=== PATIENT | female | born 1990 | race African-American/Black ===

== ENCOUNTER 2016-07-24 11:44 | Emergency (ER) | payer OTHER ==
--- NOTE | 2016-07-24 12:20 | PDOC ---
History of Present Illness <Henrik Gracia - Last Filed: 07/24/16 14:16> - General History Source: Patient Exam Limitations: No Limitations - History of Present Illness Initial Comments: 26 y/o F w/PMH of htn, hydrocephalus presents to ER w/ c/o headache. Headaches have been present for the last 1-2 years but have worsened over the last 2 months. Last few days she has had worsening of symptoms and came to ER today because she saw spots in the morning but no longer is seeing the spots. She has a 5/10 TSE right now but at its peak it is 10/10. TSE usually worsens and comes every night and lasts for 15 min to 1 hour. Pt has 1 exacerbated TSE per day. TSE is located behind her eyes and moves to behind her ears. It is preceded by nausea and white, frothy vomiting every time. TSE are worsened with light and noise. TSE relieved by warm showers. She saw Dr. Ceballos 5 days ago who has made no changes to her medications (on sumatriptan and acetazolamide) but wants her to get a head scan (pt is unsure if it is MRI or CT) in the next 5 weeks before following up with him. She denies fevers, chills, SOB, dysuria, change in stool , constipation, diarrhea, swelling, recent trauma to head. <Arsenio Pearson - Last Filed: 07/24/16 18:37> - General Chief Complaint: Headache Stated Complaint: HEADACHES Time Seen by Provider: 07/24/16 12:12 Past History <Henrik Gracia - Last Filed: 07/24/16 14:16> - Past Medical History HTN: Yes Other medical history: HEADACHES - Immunization History Td Vaccination: Yes TDAP Vaccination: Yes Immunization Up to Date: Yes - Psycho/Social/Smoking Cessation Hx Anxiety: No Suicidal Ideation: No Smoking Status: Yes Smoking History: Current every day smoker Have you smoked in the past 12 months: Yes Number of Cigarettes Smoked Daily: 8 Information on smoking cessation initiated: Yes 'Breaking Loose' booklet given: 07/24/16 Hx Alcohol Use: No Drug/Substance Use Hx: No Substance Use Type: None <Arsenio Pearson - Last Filed: 07/24/16 18:37> - Past Medical History Allergies/Adverse Reactions: Allergies Allergy/AdvReac Type Severity Reaction Status Date / Time morphine Allergy Mild Itching Verified 07/24/16 11:55 Home Medications: Ambulatory Orders Hydrochlorothiazide 25 mg PO DAILY 12/17/15 Acetazolamide [Diamox -] 250 mg PO BID 07/24/16 Amlodipine Besylate [Norvasc -] 5 mg PO DAILY 07/24/16 Sumatriptan Succinate [Imitrex] 50 mg PO BID 07/24/16 Review of Systems - Review of Systems Able to Perform ROS?: Yes Comments:: CONSTITUTIONAL: Absent: fever, chills, diaphoresis, generalized weakness, malaise, loss of appetite HEENT: +visual changes Absent: rhinorrhea, nasal congestion, ear pain, eye pain CARDIOVASCULAR: Absent: chest pain, syncope, palpitations, irregular heart rate , lightheadedness, peripheral edema RESPIRATORY: Absent: cough, shortness of breath, dyspnea with exertion, orthopnea, wheezing, GASTROINTESTINAL: +nausea, vomiting Absent: abdominal pain, abdominal distension, diarrhea, constipation, melena, hematochezia GENITOURINARY: Absent: dysuria, frequency, urgency, hesitancy, hematuria, flank pain, genital pain MUSCULOSKELETAL: Absent: myalgia, arthralgia, joint swelling ENDOCRINE:Absent: unexplained weight gain, unexplained weight loss, heat intolerance, cold intolerance NEUROLOGIC: +headache Absent: focal weakness or paresthesias, dizziness, unsteady gait, seizure, mental status changes PSYCHIATRIC: Absent: anxiety, depression, suicidal or homicidal ideation, hallucinations 07/24/16 18:34 <Arsenio Pearson - Last Filed: 07/24/16 18:37> *Physical Exam - Vital Signs Last Vital Signs Temp Pulse Resp BP Pulse Ox 97.6 F 86 20 127/83 99 07/24/16 11:52 07/24/16 11:52 07/24/16 11:52 07/24/16 11:52 07/24/16 11:52 <Henrik Gracia - Last Filed: 07/24/16 14:16> - Vital Signs Last Vital Signs Temp Pulse Resp BP Pulse Ox 97.6 F 86 20 127/83 99 07/24/16 11:52 07/24/16 11:52 07/24/16 11:52 07/24/16 11:52 07/24/16 11:52 - Physical Exam Comments: GENERAL: Well developed, well nourished. Awake and alert. No acute distress. HEENT: Normocephalic, atraumatic. EOMI. No conjunctival pallor. Sclera are non- icteric. Moist mucous membranes. NECK: Supple. Full ROM. CARDIOVASCULAR: Regular rate and rhythm. No murmurs, rubs, or gallops. PULMONARY: No evidence of respiratory distress. Lungs clear to auscultation bilaterally. No wheezing, rales or rhonchi. ABDOMINAL: Soft. Non-tender. Non-distended. No rebound or guarding. No organomegaly. Normoactive bowel sounds. MUSCULOSKELETAL: No bony deformities or tenderness. EXTREMITIES: No cyanosis. No edema. No calf tenderness. SKIN: Warm and dry. Normal capillary refill. No rashes. No jaundice. NEUROLOGICAL: Alert, awake, appropriate. Cranial nerves 2-12 grossly intact. Normal speech. PSYCHIATRIC: Cooperative. Good eye contact. Appropriate mood and affect. <Arsenio Pearson - Last Filed: 07/24/16 18:37> ED Treatment Course - LABORATORY CBC & Chemistry Diagram: 07/24/16 13:00 07/24/16 13:00 - ADDITIONAL ORDERS Additional order review: Laboratory Results 07/24/16 07/24/16 13:00 12:23 Sodium 143 Potassium 4.6 Chloride 111 H Carbon Dioxide 22 Anion Gap 10 BUN 13 D Creatinine 0.9 Creat Clearance w eGFR > 60 Random Glucose 106 D Calcium 9.2 Total Bilirubin 0.1 L D AST 13 L D ALT 44 Alkaline Phosphatase 163 H D Total Protein 6.5 Albumin 3.4 Urine Color Yellow Urine Appearance Cloudy Urine pH 6.0 Urine Protein Negative Urine Glucose (UA) Negative Urine Ketones Negative Urine Blood Negative Urine Nitrite Negative Urine Bilirubin Negative Urine Urobilinogen Negative Ur Leukocyte Esterase Negative Urine HCG, Qual Negative 07/24/16 13:00 RBC 5.00 MCV 85.4 MCHC 33.8 RDW 14.1 MPV 9.3 Neutrophils % 64.5 Lymphocytes % 28.2 Monocytes % 5.5 Eosinophils % 1.3 Basophils % 0.5 - Medications Given in the ED: ED Medications Discontinued Medications Generic Name Dose Route Start Last Admin Trade Name Freq PRN Reason Stop Dose Admin Ketorolac Tromethamine 30 mg 07/24/16 12:41 07/24/16 13:08 Toradol Injection - IVPUSH 07/24/16 12:42 30 mg ONCE ONE Administration Metoclopramide HCl 10 mg 07/24/16 12:42 07/24/16 13:08 Reglan Injection - IVPB 07/24/16 12:43 10 mg ONCE ONE Administration <Henrik Gracia - Last Filed: 07/24/16 14:16> - LABORATORY CBC & Chemistry Diagram: 07/24/16 13:00 07/24/16 13:00 <Arsenio Pearson - Last Filed: 07/24/16 18:37> Medical Decision Making - Medical Decision Making 26 y/o F w/PMH of htn, hydrocephalus presents to ER w/ c/o headache. Headaches have been present for the last 1-2 years but have worsened over the last 2 months. Last few days she has had worsening of symptoms and came to ER today because she saw spots in the morning but no longer is seeing the spots. She has a 5/10 TSE right now 07/24/16 12:43 Toradol 30 mg IV, reglan 10mg IV ordered 07/24/16 14:17 Pt's symptoms improved s/p toradol and reglan. Pt advised to f/u w/Dr. Ceballos. Pt to be discharged home. <Arsenio Pearson - Last Filed: 07/24/16 18:37> *DC/Admit/Observation/Transfer - Discharge Dispostion Admit: No <Henrik Gracia - Last Filed: 07/24/16 14:16> <Arsenio Pearson - Last Filed: 07/24/16 18:37> Diagnosis at time of Disposition: Headache Qualifiers: Headache type: tension-type Headache chronicity pattern: acute headache Intractability: not intractable Qualified Code(s): G44.209 - Tension-type headache, unspecified, not intractable - Discharge Dispostion Disposition: HOME Condition at time of disposition: Improved - Referrals Referrals: Yasmin Wagner MD [Primary Care Provider] - Jesica Ceballos MD [Staff Physician] - - Patient Instructions Printed Discharge Instructions: DI for Headache Additional Instructions: Return to the emergency department immediately with ANY new, persistent or worsening symptoms including any worsening headache, vision changes, vomiting, or other concerns. You MUST call and follow up with your doctor tomorrow for further evaluation of your symptoms. Results were discussed with you. Please make sure your doctor reviews the results of your emergency evaluation. Print Language: NIUEAN
[2016-07-24] MEDS ORDERED: KETOROLAC TROMETHAMINE 30 MG/1 ML VIAL IVPUSH ONE (12:41)
[2016-07-24] MEDS ORDERED: METOCLOPRAMIDE HCL INJECTION 10 MG/2 ML VIAL IVPB ONE (12:42)
[2016-07-24 12:54] LABS: URINE APPEARANCE CLOUDY; URINE BILIRUBIN NEGATIVE (NEGATIVE); URINE BLOOD NEGATIVE (NEGATIVE); URINE COLOR YELLOW; URINE GLUCOSE (UA) NEGATIVE (NEGATIVE); URINE KETONE NEGATIVE (NEGATIVE); URINE LEUK ESTERASE NEGATIVE (NEGATIVE); URINE NITRITE NEGATIVE (NEGATIVE); URINE PROTEIN NEGATIVE (NEGATIVE); URINE UROBILINOGEN NEGATIVE E.U./dl (0.2-1.0)
[2016-07-24] MEDS ORDERED: KETOROLAC TROMETHAMINE 30 MG/1 ML VIAL ONE (13:03)
[2016-07-24] MEDS ORDERED: METOCLOPRAMIDE HCL INJECTION 10 MG/2 ML VIAL ONE (13:03)
[2016-07-24 13:06] LABS: BASOPHIL 0.5 % (0-2.0); EOSINOPHIL 1.3 % (0-4.5); MCH 28.9 pg (25.7-33.7); MCHC 33.8 g/dl (32.0-36.0); MEAN CELL VOLUME 85.4 fl (80-96); MEAN PLT VOLUME 9.3 fl (7.5-11.1); NEUTROPHILS 64.5 % (42.8-82.8); PLATELET COUNT 254 K/MM3 (134-434); RDW 14.1 % (11.6-15.6); WHITE BLOOD COUNT 9.8 K/mm3 (4.0-10.0)
--- NOTE | 2016-07-24 13:17 | PDOC ---
Attending Attestation - Resident Resident Name: Arsenio Pearson - ED Attending Attestation I have performed the following: I have examined & evaluated the patient, The case was reviewed & discussed with the resident, I agree w/resident's findings & plan - HPI HPI: 07/24/16 13:31 26y F hx of chronic headaches presents with headache. Pt states she has a daily headache, usually lasting for ~1hr, and usually associated with blurry vision, n /v, before resolving. Pt states these headaches are typically brought on by stress events at work. Last night pt states she was feeling well, took a sumitryptan at night, then started having her typical headache. Pt states she continued to have a headache this morning when she woke up, and also was seeing some spots, so came to the ED. Pt notes her headache is about 5/10, feels like pressure behind her eyes radiating to back of her head, denies any visoin changes, numbness/tingling/weakness, dizziness, fever/chills, neck pain, back pain. pt states she saw dr. ceballos approx 5 days ago for the headache and was started on sumitryptan and acetazolamide. The pt states 3 years ago, she had a problem with double vision in 1 eye, and was sent to the ED and told that she had increase fluidin her brain, had followed up wit hneuro, started on a medication 'lindsay something', but stopped going since she was feeling much better , until headaches starting up again last year or so. pt received toradol an dreglan currently denies any headache unable to appreciate any papilledema neuro exam normal, gait normal awaiting lab work, but will lkely have pt fu with neuro as outpatient for furthyer mangement 07/24/16 13:58 pt feeling improved headache resolved suspect her intermittent headaches ?tension vs migraine headaches her intermittent headaches last ing 1 hr worse with stress situations seem atypical for Idiopathic intercranial hypertension but will hav ept continue her acetazolamide and with fu with dr. Ceballos for further mangament. I discussed the physical exam findings, ancillary test results and final diagnoses with the patient. I answered all of the patient's questions. The patient was satisfied with the care received and felt comfortable with the discharge plan and treatment plan. The patient will call their primary care physician within 24 hours to arrange follow-up and will return to the Emergency Department with any new, persistent or worsening symptoms. - Physicial Exam PE: 07/25/16 19:00 see above - Medical Decision Making 07/25/16 19:00 see above
[2016-07-24 13:30] LABS: ALBUMIN 3.4 g/dl (3.4-5.0); ANION GAP 10 (8-16); BILIRUBIN,TOTAL 0.1 mg/dL (0.2-1.0); CALCIUM 9.2 mg/dL (8.5-10.1); CO2 22 mmol/L (21-32); CREATININE 0.9 mg/dL (0.55-1.02); GLUCOSE,RANDOM 106 mg/dL (74-106); SGOT/AST 13 U/L (15-37); SGPT/ALT 44 U/L (12-78); TOT PROT 6.5 g/dl (6.4-8.2)
[2016-07-24 13:33] LABS: ALK PHOS 163 U/L (45-117)
[2016-07-24 14:06] VITALS: BP 132/89; PULSE 76; TEMP 98.3
== END 2016-07-24 14:22 | disposition home or self-care (01) ==
LOC: JER 11:44
PROC: 3E0333Z Introduction of Anti-inflammatory into Peripheral Vein, Percutaneous Approach (ICD-10-PCS; principal; 2016-07-24)
PROC: 3E033GC Introduction of Other Therapeutic Substance into Peripheral Vein, Percutaneous Approach (ICD-10-PCS; 2016-07-24)
DX: G44.209 Tension-type headache, unspecified, not intractable (principal); I10 Essential (primary) hypertension; F17.210 Nicotine dependence, cigarettes, uncomplicated; G91.9 Hydrocephalus, unspecified
CPT/HCPCS: 36415; 80053; 81003; 84703; 85025; 96374; 96375; 99284-25

== ENCOUNTER 2019-03-19 00:01 | Emergency (ER) | payer OTHER ==
[2019-03-19 00:52] VITALS: TEMP 98.4; BMI 45.6
--- NOTE | 2019-03-19 01:19 | PDOC ---
*Physical Exam - Vital Signs Last Vital Signs Temp Pulse Resp BP Pulse Ox 98.4 F 103 H 16 179/99 H 100 03/19/19 00:20 03/19/19 00:20 03/19/19 00:20 03/19/19 00:20 03/19/19 00:20 Medical Decision Making - Medical Decision Making 03/19/19 01:18 Patient seen by the advanced practice provider under my direct supervision. Ancillary testing reviewed as necessary. I agree with plan as outlined by the advanced practice provider. Discharge - Discharge Information Problems reviewed: Yes Clinical Impression/Diagnosis: [id number] Qualifiers: Encounter type: initial encounter Qualified Code(s): T78.3XXA - Angioneurotic edema, initial encounter Disposition: HOME - Additional Discharge Information Prescriptions: Diphenhydramine HCl [Benadryl -] 25 mg PO Q6H PRN #28 capsule PRN Reason: For Itching Famotidine [Pepcid] 40 mg PO DAILY #20 tablet Prednisone [Prednisone 50 MG TABLETS] 50 mg PO DAILY #4 tablet - Follow up/Referral - Patient Discharge Instructions Patient Printed Discharge Instructions: DI for Adverse Drug Reaction -- Allergic Additional Instructions: take benadryl, pepcid and prednisone as prescribed come back in 1 day for reevaluation - Post Discharge Activity Work/Back to School Note: Back to Work
[2019-03-19] MEDS ORDERED: diphenhydrAMINE HCL 50 MG CAPSULE PO ONE (01:38)
[2019-03-19] MEDS ORDERED: predniSONE 20 MG TABLET (UD) PO ONE (01:38)
--- NOTE | 2019-03-19 01:38 | PDOC ---
History of Present Illness - General Chief Complaint: Edema Stated Complaint: BILATERAL HAND SWELLING Time Seen by Provider: 03/19/19 01:17 History Source: Patient - History of Present Illness Initial Comments: 03/19/19 01:41 28-year-old female complaining of bilateral hand swelling and itching since yesterday. noted to have lower lip swelling Denies respiratory symptoms, tongue swelling difficulty swallowing. Past medical history of hypertension patient is currently on enalapril 03/19/19 02:51 Past History - Past Medical History Allergies/Adverse Reactions: Allergies Allergy/AdvReac Type Severity Reaction Status Date / Time morphine Allergy Mild Itching Verified 03/19/19 00:51 Home Medications: Ambulatory Orders Amlodipine Besylate [Norvasc -] 5 mg PO DAILY 07/24/16 Sumatriptan Succinate [Imitrex] 50 mg PO BID 07/24/16 acetaZOLAMIDE [Diamox -] 250 mg PO BID 07/24/16 Diphenhydramine HCl [Benadryl -] 25 mg PO Q6H PRN #28 capsule 03/19/19 Famotidine [Pepcid] 40 mg PO DAILY #20 tablet 03/19/19 Prednisone [Prednisone 50 MG TABLETS] 50 mg PO DAILY #4 tablet 03/19/19 COPD: No HTN: Yes - Immunization History Td Vaccination: Yes TDAP Vaccination: Yes Immunization Up to Date: Yes - Psycho Social/Smoking Cessation Hx Smoking Status: Yes Smoking History: Never smoked Have you smoked in the past 12 months: No Number of Cigarettes Smoked Daily: 8 Information on smoking cessation initiated: No 'Breaking Loose' booklet given: 07/24/16 Hx Alcohol Use: No Drug/Substance Use Hx: No Substance Use Type: None Review of Systems - Review of Systems Able to Perform ROS?: Yes Is the patient limited Sinhala proficient: No Constitutional: No: Symptoms Reported, See HPI, Chills, Diaphoresis, Fever, Loss of Appetite, Malaise, Night Sweats, Weakness, Weight Stable, Unintentional Wgt. Loss, Unexplained wgt Loss, Other *Physical Exam - Vital Signs Last Vital Signs Temp Pulse Resp BP Pulse Ox 98.4 F 103 H 16 179/99 H 100 03/19/19 00:20 03/19/19 00:20 03/19/19 00:20 03/19/19 00:20 03/19/19 00:20 - Physical Exam General Appearance: Yes: Appropriately Dressed HEENT: positive: Other (has slight lower lip swelling) Neck: positive: Trachea midline, Supple, Other (uvula midlines) Respiratory/Chest: positive: Lungs Clear, Normal Breath Sounds Cardiovascular: positive: Regular Rhythm, Regular Rate Extremity: positive: Other (edema to both arm, redness/ wheals to forearm b/l no oral swelling) Integumentary: positive: Normal Color, Dry, Warm Neurologic: positive: Fully Oriented, Alert ED Progress Note - Progress Note Progress Note: 03/19/19 03:29 A: angioedema P: prednisone pepcid benadryl Medical Decision Making - Medical Decision Making 03/19/19 03:28 arm swelling decreasing will d.c home with strict return precautions, Discharge - Discharge Information Problems reviewed: Yes Clinical Impression/Diagnosis: [id number] Qualifiers: Encounter type: initial encounter Qualified Code(s): T78.3XXA - Angioneurotic edema, initial encounter Disposition: HOME - Additional Discharge Information Prescriptions: Diphenhydramine HCl [Benadryl -] 25 mg PO Q6H PRN #28 capsule PRN Reason: For Itching Famotidine [Pepcid] 40 mg PO DAILY #20 tablet Prednisone [Prednisone 50 MG TABLETS] 50 mg PO DAILY #4 tablet - Follow up/Referral - Patient Discharge Instructions Patient Printed Discharge Instructions: DI for Adverse Drug Reaction -- Allergic Additional Instructions: take Benadryl, Pepcid and Prednisone as prescribed come back in 1 day for reevaluation return to the ER for any worsening symptoms. - Post Discharge Activity Work/Back to School Note: Back to Work
[2019-03-19] MEDS ORDERED: FAMOTIDINE 20 MG TABLET PO ONE (01:39)
[2019-03-19 01:52] VITALS: BP 143/95; PULSE 101
[2019-03-19] MEDS ORDERED: predniSONE 20 MG TABLET (UD) ONE (02:03)
[2019-03-19] MEDS ORDERED: FAMOTIDINE 10 MG TABLET ONE (02:03)
[2019-03-19] MEDS ORDERED: diphenhydrAMINE HCL 25 MG CAPSULE (FP) PO ONE (02:04)
== END 2019-03-19 03:36 | disposition home or self-care (01) ==
LOC: JER 00:01
DX: T78.3XXA Angioneurotic edema, initial encounter (principal); Z88.6 Allergy status to analgesic agent; I10 Essential (primary) hypertension; F17.210 Nicotine dependence, cigarettes, uncomplicated
CPT/HCPCS: 99282-25

== ENCOUNTER 2019-03-19 20:22 | Emergency (ER) | payer OTHER ==
[2019-03-19] MEDS ORDERED: DEXAMETHASONE SOD PHOSPHATE 10 MG/1 ML VIAL ONE (20:29)
--- NOTE | 2019-03-19 20:31 | PDOC ---
History of Present Illness - General Stated Complaint: ALLERGIC REACTION Time Seen by Provider: 03/19/19 20:25 - History of Present Illness Initial Comments: Yasmin Snowden is a 28yo woman with a PMH of HTN who presents to the ED for the second time today with diffuse hives and lip swelling. She reports that her sister had a similar reaction after wearing a jacket, which the pt also touched prior to her symptoms starting. Ms Snowedn was seen in the ED about 19 hours ago. At that time, she had b/l hand swelling and itching, hives on her BUE, and mild lower lip swelling. She was given diphenhydramine, famotidine, and prednisone. Ms Snowden reports that she went home, took her prescribed diphenhydramine earlier today, went to sleep, and noted that her symptoms had worsened this evening. She states that the hives on her arms have continued, and she how has hives over her face. She also has worsened lip swelling, now moderate swelling of both upper and lower lips. She denies any difficulty breathing, tongue swelling, sensation of throat swelling, throat itching, difficulty swallowing, or other airway or respiratory symptoms. Ms Snowden has no known allergies, no history of asthma, and has never had a similar reaction in the past. She was given an additional 50mg diphenhydramine and 10mg dexamathasone by EMS prior to her arrival at the hospital. Past History - Past Medical History Allergies/Adverse Reactions: Allergies Allergy/AdvReac Type Severity Reaction Status Date / Time morphine Allergy Mild Itching Verified 03/19/19 00:51 Home Medications: Ambulatory Orders Amlodipine Besylate [Norvasc -] 5 mg PO DAILY 07/24/16 Sumatriptan Succinate [Imitrex] 50 mg PO BID 07/24/16 acetaZOLAMIDE [Diamox -] 250 mg PO BID 07/24/16 Diphenhydramine HCl [Benadryl -] 25 mg PO Q6H PRN #28 capsule 03/19/19 Famotidine [Pepcid -] 20 mg PO BID #14 tablet 03/19/19 Prednisone [Prednisone 50 MG TABLETS] 50 mg PO DAILY #4 tablet 03/19/19 COPD: No HTN: Yes - Immunization History Td Vaccination: Yes TDAP Vaccination: Yes Immunization Up to Date: Yes - Psycho Social/Smoking Cessation Hx Smoking Status: Yes Smoking History: Never smoked Have you smoked in the past 12 months: No Number of Cigarettes Smoked Daily: 8 'Breaking Loose' booklet given: 07/24/16 Hx Alcohol Use: No Drug/Substance Use Hx: No Substance Use Type: None Review of Systems - Review of Systems Comments:: General: No fevers, no chills, no weight or appetite change, no malaise HEENT: No changes in vision, no changes in hearing, no congestion, no sore throat. +Lip swelling CV: No chest pain, no palpitations, no LE edema Pulm: No SOB, no cough, no wheezing GI: No nausea or vomiting, no change in bowel habits, no melena : No frequency, no urgency, no dysuria Musc: No back pain, no joint swelling, no recent injury Skin: +Hives over BUE and face Endo: No excessive thirst, no heat/cold intolerance Heme: No unusual bruising or bleeding, no swollen glands Neuro: No syncope, no numbness/tingling, no focal weakness Vasc: No claudication Psych: No recent change in mood, no SI or HI *Physical Exam - Physical Exam General: Comfortable, no acute distress HEENT: Atraumatic. PERRL, EOMI, MMM, voice normal, normal neck ROM. Upper and lower lip swelling with surrounding erythematous wheals; hives diffusely over face. Uvula midline, no uvular or tonsillar erythema appreciated. Cards: RRR, no murmur appreciated Pulm: Comfortable on room air, clear to auscultation bilaterally. No wheezing or crackles Abd: Soft, nontender, nondistended Ext: Atraumatic. No LE edema. ROM intact. WWP. Skin: Erythematous wheals c/w hives over b/l upper extremities and upper torso. Neuro: A&Ox3, CN grossly intact, normal speech, motor/sensory grossly intact and symmetric Psych: Mood appropriate to situation ED Treatment Course - LABORATORY CBC & Chemistry Diagram: 03/19/19 20:42 03/19/19 20:42 Medical Decision Making - Medical Decision Making 03/19/19 20:39 Yasmin Snowden is a 28yo woman with a PMH of HTN, no known history of allergies , who presents to the ED for the second time today with diffuse upper body hives and lip swelling. She denies any difficulty breathing, throat, or tongue swelling. - Presentation c/w moderate allergic reaction - No s/s of airway or respiratory compromise at this time - Pt already treated with diphenhydramine and steroids. No utility in additional dosing - Famotidine IV ordered - Pt requesting labs. Given that this is her second presentation today, now with worsening symptoms, will evaluate CBC, CMP for abnormalities - Will continue to monitor symptoms 03/19/19 22:40 - Labs without concerning abnormalities - Hives improving - Still no airway involvement - Will d/c home. Pt already has prescription for steroids and antihistamines at home. Advised that she may take home medications unless symptoms worsen or change. Will follow up with product support technician as an outpatient. Discussed with Dr Basil Younger PGY2 Discharge - Discharge Information Problems reviewed: Yes Clinical Impression/Diagnosis: [id number] Qualifiers: Encounter type: subsequent encounter Qualified Code(s): T78.3XXD - Angioneurotic edema, subsequent encounter Condition: Stable Disposition: HOME - Admission No - Follow up/Referral Referrals: Omkar Krishnamurthy MD [Non Staff, Medical] - - Patient Discharge Instructions Patient Printed Discharge Instructions: DI for Hives Additional Instructions: Discharge Instructions: You were seen in the emergency department for an allergic reaction. It is unclear what caused this reaction, but your symptoms improved with medications. Home Care: - Continue to take your prescribed Benadryl (diphenhydramine) 50mg every 6 hours as needed for symptoms. Be aware that this medication will make you sleepy , and be careful driving - Continue to take the previously prescribed prednisone as directed - You may continue to have hives and itching for a few days. These should improve with the medications - You have been given contact information for Dr Krishnamurthy, an product support technician. Make an appointment for within the next 1-2 weeks for follow up - Seek immediate medical care if you have worsening symptoms, difficulty breathing, throat swelling, difficulty swallowing, changes in your voice, or any other medical emergency. - Post Discharge Activity
--- NOTE | 2019-03-19 20:36 | PDOC ---
Attending Attestation - Resident Resident Name: Sherry Younger - ED Attending Attestation I have performed the following: I have examined & evaluated the patient, The case was reviewed & discussed with the resident, I agree w/resident's findings & plan, Exceptions are as noted - HPI HPI: 03/19/19 20:31 28y F no pmhx presents with complaint of facial swelling. Pt was here last night for evaluation of hand/facial sweling, was treated wth pepcid/prednisone with impovement of symptoms but she woke up this morning noting impovement of those sypmtoms, but noticed sweling in her upper lip anamaria tsemed to be gradually worsening throughout the day. She woke up from he rnap around 5pm and noiticed swelling so came for evlauaion. pt denies any difficulty swallwing, difficulty breathing, n/v. No known allergies. Pt unclear of what may have triggered. no known allergic history. She was given decadron by EMS. Exam: GENERAL: The patient is awake, alert, and fully oriented, Nontoxic - in no acute distress. HEAD: Normocephalic, atraumatic. EYES: extraocular movements intact, sclera anicteric, conjunctiva clear. ENT: Normal voice, Moist mucous membranes, posterior pharynx is symmetric without any signs of swelling, + upper lip edema. Normal voice, NECK: Normal range of motion, supple, no stridor LUNGS: Breath sounds equal, clear to auscultation bilaterally. No wheezes, no rhonchi, no rales. HEART: Regular rate and rhythm, normal S1 and S2 without murmur, rub or gallop. ABDOMEN: Soft, nontender, No guarding, no rebound. No CVA tenderness EXTREMITIES: Normal range of motion, no edema. NEUROLOGICAL: No facial assymetry, Normal speech, PSYCH: Normal mood, normal affect. SKIN: Warm, Dry, normal turgor, urticaria noted on upper extremities Likely allergic reaction without obvious trigger, will give the patient Pepcid, she was given Decadron by EMS, will continue to observe there is no signs of airway involvement beside her lip swelling. Will recommend that she follow-up with an material movers for further evaluation - Physicial Exam PE: 03/19/19 22:41 See above - Medical Decision Making 03/19/19 22:40 pt doing well no worsening labs reviewed noted for leukocytosis, likely due to recent prednisone use. return precauions were discussed
[2019-03-19] MEDS ORDERED: FAMOTIDINE 20 MG/50 ML IVPB 20 MG/50 ML MG IVPB ONE ×2 (20:38→20:41)
[2019-03-19 20:47] VITALS: BMI 99.5
[2019-03-19 21:22] LABS: BASO % 0.2 % (0-2.0); EOS % 0.1 % (0-4.5); HEMATOCRIT 42.4 % (32.4-45.2); HEMOGLOBIN 13.9 GM/dL (10.7-15.3); LYMPH % 20.5 % (8-40); MCH 29.3 pg (25.7-33.7); MCHC 32.9 g/dl (32.0-36.0); MEAN CELL VOLUME 88.9 fl (80-96); MONO % 5.8 % (3.8-10.2); NEUT % 73.4 % (42.8-82.8); PLATELET COUNT 240 K/MM3 (134-434); RBC 4.77 M/mm3 (3.60-5.2); RDW 14.6 % (11.6-15.6)
[2019-03-19 21:45] LABS: ALBUMIN 3.4 g/dl (3.4-5.0); BILIRUBIN,TOTAL 0.3 mg/dL (0.2-1); BLOOD UREA NITROGEN 12.3 mg/dL (7-18); POTASSIUM 3.8 mmol/L (3.5-5.1); TOT PROT 6.3 g/dl (6.4-8.2)
[2019-03-19 22:54] VITALS: BP 134/68; PULSE 73; TEMP 98
== END 2019-03-19 22:58 | disposition home or self-care (01) ==
LOC: JER 20:22
PROC: 3E033GC Introduction of Other Therapeutic Substance into Peripheral Vein, Percutaneous Approach (ICD-10-PCS; principal; 2019-03-19)
DX: F17.210 Nicotine dependence, cigarettes, uncomplicated (principal); I10 Essential (primary) hypertension; T78.3XXD Angioneurotic edema, subsequent encounter
CPT/HCPCS: 36415; 80053; 85025; 96365; 99283-25

== ENCOUNTER 2020-04-17 03:35 | Emergency (ER) | payer OTHER ==
[2020-04-17 04:27] VITALS: BP 152/85; PULSE 84; TEMP 98.5; BMI 47.1
== END 2020-04-17 07:06 | disposition home or self-care (01) ==
LOC: JER 03:35
DX: R51.9 Headache, unspecified (principal)
CPT/HCPCS: 70450-TC; 99284-25